=== PATIENT | female | born 1985 | race African-American/Black ===

== ENCOUNTER 2016-08-25 19:44 | Emergency (ER) | payer MEDICAID ==
[~2016-08-25 19:44] MED LIST: PHENAZOPYRIDIN200 MG ORAL
--- NOTE | 2016-08-25 20:57 | Emergency Room Report ---
History of Present Illness General Chief Complaint: To Be Triaged Present Illness Allergies: Coded Allergies: CHOCOLATE FLAVOR (Verified Allergy, Unknown, 11/18/15) CITRUS AND DERIVATIVES (Verified Allergy, Unknown, 11/18/15) Medical Decision Making ER Course Please note that the patient left before being seen Considered left without being seen Status: other Disposition: LEFT W/OUT BEING SEEN Condition: Unknown Referrals: NOT CHOSEN [facility]/,REFERRING (PCP) LINWOOD BORJAS D.O. Aug 25, 2016 20:57
== END 2016-08-25 21:00 | disposition left against medical advice (07) ==
LOC: EMR 19:55
DX: Z01.30 Encounter for examination of blood pressure without abnormal findings (principal); Z53.21 Procedure and treatment not carried out due to patient leaving prior to being seen by health care provider

== ENCOUNTER 2019-06-21 11:37 | Emergency (ER) | payer MEDICAID ==
[~2019-06-21] VITALS: Ht 170.2 cm; Wt 89.8 kg
--- NOTE | 2019-06-21 12:07 | NUR ---
ED Nurse Note: Pt walked in ED from home c/o neck and right shoulder pain. Pt denies injury/trauma/SOB.
[2019-06-21 12:08] VITALS: BP 116/81
[2019-06-21] MEDS ORDERED: Methocarbamol 500mg tab ORAL ONE (12:30)
[2019-06-21] MEDS ORDERED: LIDODERM700 M1 TOPIC (12:56)
[2019-06-21] MEDS ORDERED: IBUPROFEN600 MG ORAL (12:56)
[2019-06-21] MEDS ORDERED: ROBAXIN-750750 MG PO (12:56)
--- NOTE | 2019-06-21 12:56 | Emergency Room Report ---
History of Present Illness General Chief Complaint: Neck Pain Source: Patient Present Illness HPI 34-year-old female presents to the emergency department complaining of 9 out of 10 severity pain, spasm and tenderness to the muscle of the right side of the neck and shoulder since awakening this morning. Patient reports she believes she may have slept in a different position. Patient denies significant strenuous activity she denies trauma or fall. Patient reports she is right- hand dominant. Patient denies paresthesias, motor muscle weakness, loss of gross motor movements or loss of sensation. Patient denies rash, bruising, warmth or swelling. She denies midline neck or back pain. Patient states she has not taken any medications for her symptoms. Allergies: Coded Allergies: CHOCOLATE FLAVOR (Verified Allergy, Unknown, 11/18/15) CITRUS AND DERIVATIVES (Verified Allergy, Unknown, 11/18/15) Patient History Past Medical History: see triage record Past Surgical History: none Pertinent Family History: none Now: No Immunizations: UTD Reviewed Nursing Documentation: PMH: Agreed; PSxH: Agreed Nursing Documentation-PMH Past Medical History: No Stated History Review of Systems All Other Systems: negative except mentioned in HPI Physical Exam Vital Signs Date Time Temp Pulse Resp B/P (MAP) Pulse Ox O2 Delivery O2 Flow Rate FiO2 06/21/19 11:53 98.1 81 16 116/81 (93) 99 Room Air Sp02 EP Interpretation: reviewed, normal General Appearance: no apparent distress, alert, GCS 15, non-toxic Head: normocephalic, atraumatic Eyes: bilateral eye normal inspection, bilateral eye PERRL ENT: hearing grossly normal, normal voice Neck: full range of motion, tender lateral - Right trapezius, other - No midline spinous process tenderness no palpable step-offs patient has full range of motion of the neck no meningeal signs. Respiratory: lungs clear, normal breath sounds, speaking full sentences Cardiovascular #1: regular rate, rhythm, normal capillary refill Cardiovascular #2: 2+ radial (R), 2+ radial (L) Musculoskeletal: back normal, gait/station normal, normal range of motion, tender - Tenderness to palpation of the right trapezius muscle and the right deltoid. No midline spinous process tenderness or palpable step-offs of the thoracic spine. Some mild tenderness to palpation to the right paraspinal musculature in the thoracic area. Patient has full range of motion. No obvious deformities or swelling noted. Neurologic: alert, oriented x3, responsive, motor strength/tone normal, sensory intact, normal gait, speech normal, grossly normal Psychiatric: judgement/insight normal Skin: normal color, normal inspection Medical Decision Making PA Attestation Dr. Cadena is my supervising Physician whom patient management has been discussed with. Diagnostic Impression: Primary Impression: Trapezius muscle spasm Additional Impression: Neck pain on right side ER Course 34-year-old female presents to the emergency department complaining of 9 out of 10 severity pain, spasm and tenderness to the muscle of the right side of the neck and shoulder since awakening this morning. Patient reports she believes she may have slept in a different position. Patient denies significant strenuous activity she denies trauma or fall. Patient reports she is right- hand dominant. Patient denies paresthesias, motor muscle weakness, loss of gross motor movements or loss of sensation. Patient denies rash, bruising, warmth or swelling. She denies midline neck or back pain. Patient states she has not taken any medications for her symptoms. Ddx considered but are not limited to Fracture, dislocation, contusion, epidural abscess, meningitis sprain/Strain/Spasm Vital signs: are WNL, pt. is afebrile H&PE are most consistent with muscle spasm/torticollis ORDERS: none required at this time. ED INTERVENTIONS: -Robaxin 1gm - Lidoderm TP DISCHARGE: At this time pt. is stable for d/c to home. Will provide printed patient care instructions, and any necessary prescriptions. Care plan and follow up instructions have been discussed with the patient prior to discharge. Last Vital Signs Date Time Temp Pulse Resp B/P (MAP) Pulse Ox O2 Delivery O2 Flow Rate FiO2 06/21/19 12:08 98.1 88 16 116/81 99 Room Air Disposition: HOME, SELF-CARE Condition: Stable Scripts Methocarbamol* (ROBAXIN-750*) 750 Mg Tablet 750 MG PO QID, #30 TAB 0 Refills Prov: Iraida Yeh 06/21/19 Ibuprofen* (MOTRIN*) 600 Mg Tablet 600 MG ORAL THREE TIMES A DAY, #30 TAB 0 Refills Prov: Iraida Yeh 06/21/19 Lidocaine Patch* (Lidoderm Patch*) 1 Each Adh..patch 1 PATCH TOPIC DAILY, #30 PATCH 0 Refills Patch(es) may remain in place for up to 12 hours in any 24-hour period. Prov: Iraida Yeh 06/21/19 Referrals: [facility]NI[facility] ARMSTR[facility],REFERRING (PCP) Departure Forms: Return to Work Return to Work Date: Jun 23, 2019 Work Restrictions: No Heavy Lifting, No Prolonged Standing Other Restrictions: light duty. May return Sooner if Symptoms have resolved. Return to Full Activity: Jun 23, 2019 Patient Instructions: Muscle Pain, Adult Additional Instructions: Take medications as directed. Follow up with a Primary Care Provider in 3-5 days, even if your symptoms have resolved. --Please review list of primary care clinics, if you do not already have a primary care provider Return sooner to ED if new symptoms occur, or current symptoms become worse. Do not drink alcohol, drive, or operate heavy machinery while taking Robaxin ( Muscle Relaxers) as this may cause drowsiness. - Please note that this Emergency Department Report was dictated using [employer] machine operator technology software, occasionally this can lead to erroneous entry secondary to interpretation by the dictation equipment. Iraida Yeh Jun 21, 2019 12:56
[2019-06-21 13:15] VITALS: BP 116/81
--- NOTE | 2019-06-21 13:15 | NUR ---
ED Nurse Note: Pt cleared by ERMDr for discharge. DC instructions/prescription was given and explained to pt and verbalized understanding of teachings. All medical deviecs such as ID band removed. Pt is AAO x4, ambulatory and left with all personal belongings.
== END 2019-06-21 13:15 | disposition home or self-care (01) ==
LOC: EMR 12:43
DX: M54.2 Cervicalgia (principal); M62.838 Other muscle spasm; Z91.018 Allergy to other foods
CPT/HCPCS: 99282